=== PATIENT | female | born 1970 | race African-American/Black ===

== ENCOUNTER 2017-01-26 07:21 | Emergency (ER) | payer BC ==
[~2017-01-26] VITALS: Ht 160 cm; Wt 63.5 kg
[2017-01-26 07:26] VITALS: BP 122/73
[2017-01-26] MEDS ORDERED: Tetracaine 0.5% Opth Soln LEFT EYE ONE (07:45)
[2017-01-26] MEDS ORDERED: Fluorescein Strips BOTH EYES ONE (07:45)
--- NOTE | 2017-01-26 07:49 | Emergency Room Report ---
History of Present Illness General Chief Complaint: Eye Problems Source: Patient Present Illness HPI [id number] alleges poked in right eye last night by daughter accidentally. Was able to sleep all night. Worse pain today. Cant open eye d/t pain. Doesnt wear contacts. Denies pain with extra ocular movement, seeing double, loss of vision , blurry vision. Allergies: Coded Allergies: No Known Allergies (Unverified , 01/26/17) Patient History Past Medical History: none Past Surgical History: none Pertinent Family History: none Social History: Denies: alcohol use, drug use, smoking Last Menstrual Period: 01/11/17 Now: No Immunizations: UTD Reviewed Nursing Documentation: PMH: Agreed, PSxH: Agreed Nursing Documentation-PMH Past Medical History: No Stated History Review of Systems All Other Systems: negative except mentioned in HPI Physical Exam Vital Signs Date Time Temp Pulse Resp B/P Pulse Ox O2 Delivery O2 Flow Rate FiO2 01/26/17 07:26 98.2 75 15 122/73 99 Room Air Sp02 EP Interpretation: reviewed, normal General Appearance: normal inspection, well appearing, no apparent distress, alert, GCS 15, non-toxic Head: normocephalic, atraumatic Eyes: bilateral eye EOMI, bilateral eye PERRL, bilateral eye other - Acuity: 20 /25 both eyes with glasses. 20/30 (right, affected eye). Negative fluour uptake, no corneal abrasion. No FB on eversion of eyelids. EOMI. PERRLA ENT: normal ENT inspection, hearing grossly normal, normal voice Neck: normal inspection, full range of motion, supple, no bony tend Respiratory: normal inspection, lungs clear, normal breath sounds, no respiratory distress, no retraction, no wheezing Cardiovascular #1: regular rate, rhythm, no edema Gastrointestinal: normal inspection, normal bowel sounds, non tender, soft, no guarding, no hernia Genitourinary: no CVA tenderness Musculoskeletal: normal inspection, back normal, normal range of motion, Candy' s Sign negative Neurologic: normal inspection, alert, oriented x3, responsive, channeler III-XII nml as tested, motor strength/tone normal, speech normal Psychiatric: normal inspection, judgement/insight normal, mood/affect normal Skin: normal inspection, normal color, no rash Lymphatic: normal inspection Medical Decision Making Diagnostic Impression: Primary Impression: Acute right eye pain ER Course No corneal abrasion Vision acuity intact Low suspicion for bulb rupture Rx topical analgesia PMD followup DC home Last Vital Signs Date Time Temp Pulse Resp B/P Pulse Ox O2 Delivery O2 Flow Rate FiO2 01/26/17 07:26 98.2 75 15 122/73 99 Room Air Status: improved Disposition: HOME, SELF-CARE CLAUDY MURPHY M.D. Jan 26, 2017 07:49
[2017-01-26] MEDS ORDERED: IBUPROFEN600 MG ORAL (07:52)
[2017-01-26] MEDS ORDERED: CYCLOGYL 1% OP S2 ML OP (07:52)
[2017-01-26 08:00] VITALS: BP 122/73
== END 2017-01-26 08:05 | disposition home or self-care (01) ==
LOC: EMR 08:04
DX: H57.11 Ocular pain, right eye (principal)
CPT/HCPCS: 99283